=== PATIENT | female | born 1945 | race Caucasian/White ===

== ENCOUNTER → 2019-03-15 | Outpatient (CLI) | payer MEDICARE ==
[~2019-03-15] MED LIST: FAMO40TA6 PO; FLUO40CA PO; HYDR-2854 PO; LISI10TA PO; PRED-398 PO; PREVASTATIN
--- NOTE | 2019-03-15 11:02 | Diagnostic Imaging Report ---
INDICATION: Postmenopausal state. COMPARISON: November 26, 2012. FINDINGS: AP Spine L1-L4: [BMD (g/cm2): 1.084] [T-Score: -1.0] [Z-Score: -0.3] [BMD Previous: 1.114] [BMD % Change: -2.7] LT Hip Neck: [BMD (g/cm2): 0.919] [T-Score: -0.9] [Z-Score: 0.3] LT Hip Total: [BMD (g/cm2):1.073] [T-Score:0.5] [Z-Score: 1.3] [BMD Previous: 1.128] [BMD % Change: -4.9] RT Hip Neck: [BMD (g/cm2):0.868] [T-Score:-1.2] [Z-Score:-0.1] RT Hip Total: [BMD (g/cm2):1.015] [T-score:0.1] [Z-Score:0.9] [BMD Previous:1.075] [BMD % Change:-5.6] *Indicates significant change from prior examination based on 95% confidence level. World Health Organization criteria for BMD interpretation classify patients as Normal (T-score at or above -1.0), Osteopenic (T-score between -1.0 and -2.5) or Osteoporotic (T-score at or below -2.5). LIMITATIONS AND MODIFICATION: None. FRACTURE RISK (FRAX SCORE): The ten year probability of (%): Major Osteoporotic Fracture: [9.1] Hip Fracture: [1.2] IMPRESSION: 1. Osteopenia (Low bone mass). 2. No significant change in bone mineral density since prior examination. 3. See below National Osteoporosis Foundation guidelines on when to potentially initiate pharmacologic therapy. Based on the National Osteoporosis Foundation Guidelines, pharmacologic treatment should be initiated in any of the following, unless clinical conditions suggest otherwise: * Any patient with prior fragility fracture of the hip or vertebrae. A spine fracture indicates 5X risk for subsequent spine fracture and 2X risk for subsequent hip fracture. * Osteoporosis (T-score <-2.5). * Postmenopausal women and men age 50 and older with low bone mass/osteopenia (T-score between -1.0 and -2.5) by DXA and 10-year major osteoporotic fracture greater than 20% or a 10-year probability of hip fracture greater than 3%. These fracture risks are supplied above in the FRAX score, if applicable. * Clinician judgement and/or patient preferences may indicate treatment for people with 10-year fracture probabilities above or below these levels. Dictated by: Dictated on workstation # [id number]
--- NOTE | 2019-03-15 13:21 | Diagnostic Imaging Report ---
INDICATION: Routine screening. COMPARISON: Comparison is made with prior mammogram from 11/26/2012. 2-D and 3-D bilateral screening mammography was performed. The current study was also evaluated with a Computer Aided Detection (CAD) system. 3-D tomosynthesis was also performed and reviewed. FINDINGS: Scattered fibroglandular densities are identified bilaterally. Benign calcifications are noted in both breasts. Tiny circumscribed nodules in the outer aspects of both breasts appears stable. No spiculated mass or malignant-appearing microcalcifications are seen. The axillae are unremarkable. IMPRESSION: No mammographic features suspicious for malignancy are identified. ACR BI-RADS Category 2: Benign findings. Result letter will be mailed to the patient. Note: At least 10% of breast cancer is not imaged by mammography. Dictated by: Dictated on workstation # [id number]
== END ==
LOC: RAD 09:56
PROVIDERS: ATTEND Nurse Practitioner Family
DX: Z12.31 Encounter for screening mammogram for malignant neoplasm of breast (principal); M85.80 Other specified disorders of bone density and structure, unspecified site; Z78.0 Asymptomatic menopausal state
CPT/HCPCS: 77067; 77080

== ENCOUNTER → 2019-04-11 | Outpatient (CLI) | payer MEDICARE | LOC: CARD 13:34 | PROVIDERS: ATTEND Internal Medicine Cardiovascular Disease | DX: I11.9 Hypertensive heart disease without heart failure (principal); R09.89 Other specified symptoms and signs involving the circulatory and respiratory systems; G89.29 Other chronic pain; E11.9 Type 2 diabetes mellitus without complications; R94.31 Abnormal electrocardiogram [ECG] [EKG]; R06.02 Shortness of breath; I08.0 Rheumatic disorders of both mitral and aortic valves | CPT/HCPCS: 93225; 93226; 93306 ==

== ENCOUNTER → 2019-04-26 | Outpatient (CLI) | payer MEDICARE ==
[~2019-04-26] VITALS: Ht 167 cm; Wt 96.0 kg
[~2019-04-26] MED LIST changes: +CATHETER FLUSH 10 ML SYR IV PRN; +REGADENOSON 0.4 MG/5 ML SYR (LEXISCAN) IV ONE
[2019-04-26 09:32] VITALS: BP 151/94
--- NOTE | 2019-04-26 18:30 | STRESS TEST ---
DATE OF SERVICE: 04/26/2019 RESTING AND POST REGADENOSON TECHNETIUM-99M TETROFOSMIN SPECT CT IMAGING ORDERING PHYSICIAN: Dr. Ashraf. PRIMARY PHYSICIAN: NIK Denney CLINICAL DIAGNOSES: Chest discomfort, hypertension. Baseline images were carried out after injection of 9.99 mCi of technetium-99m Tetrofosmin. This was followed by 0.4 mg regadenoson and 27.1 mCi of technetium-99m Tetrofosmin. The electrocardiogram showed sinus rhythm at baseline. It did not change significantly with regadenoson infusion. The patient noted some shortness of breath and nausea following regadenoson infusion, which resolved in a few minutes. Review of images at rest and following stress does not indicate any significant perfusion defects consistent with significant myocardial ischemia or infarction. Gated images show normal global left ventricular systolic function with normal regional wall motion. Left ventricular ejection fraction is calculated to be 62%. Left ventricular end diastolic volume is 84 mL. TID is absent (1.08). CONCLUSIONS: 1. No evidence of any significant myocardial ischemia or infarction on this study. 2. Normal regional wall motion. 3. Normal global left ventricular systolic function with a calculated ejection fraction of 62%. Job ID: [id number] DocumentID: [id number] Dictated Date: 04/26/2019 16:08:02 Anesthesiologists' Assistant Date: 04/26/2019 18:29:53 Dictated By: ZULEYKA ASHRAF MD, MA, FACP, FACC,
== END ==
LOC: CARD 08:18
PROVIDERS: ATTEND Internal Medicine Cardiovascular Disease
DX: I10 Essential (primary) hypertension (principal); G89.29 Other chronic pain; M54.9 Dorsalgia, unspecified; E11.9 Type 2 diabetes mellitus without complications; R94.31 Abnormal electrocardiogram [ECG] [EKG]; R06.02 Shortness of breath
CPT/HCPCS: 78452; 93017

== ENCOUNTER → 2020-03-14 | Outpatient (CLI) | payer MEDICARE ==
[~2020-03-14] MED LIST changes: -CATHETER FLUSH 10 ML SYR IV PRN; -REGADENOSON 0.4 MG/5 ML SYR (LEXISCAN) IV ONE; +RT-ALBUTEROL SULF 2.5 MG/3 ML PRE-MIX VIAL INH ONE
== END ==
LOC: RT 13:00
PROVIDERS: ATTEND Nurse Practitioner Family
DX: R06.02 Shortness of breath (principal)
CPT/HCPCS: 94060; 94726; 94729

== ENCOUNTER → 2020-06-11 | Outpatient (CLI) | payer MEDICARE ==
[~2020-06-11] MED LIST changes: +HOLD METFORMIN - RECEIVED CONTRAST 20 ML VIAL IV SCH; +IOHEXOL 350 MG/ML 100 ML (OMNIPAQUE 350) VIAL IV ONE; +NS 100 ML (IVPB) BAG IV ONE; -RT-ALBUTEROL SULF 2.5 MG/3 ML PRE-MIX VIAL INH ONE
[2020-06-11 11:57] LABS: ABG BASE EXCESS 0.6 MMOL/L (-2.5-2.5); ABG OXYGEN SATURATION 98 % (94-100); ABG PCO2 36 MMHG (35-45); ABG PH 7.44 (7.37-7.43); ABG PO2 86 MMHG (79-93); ABG TCO2 25.5 MMOL/L (21.0-31.0)
[2020-06-11 12:01] LABS: ALLENS TEST YES-POS
[2020-06-11 12:02] LABS: INSPIRED O2 Room Air; PATIENT TEMP 36.5; VENTILATOR NO
[2020-06-11 12:05] LABS: BUN/CREATININE RATIO 23; CREATININE SERUM 0.75 MG/DL (0.60-1.30); GFR ESTIMATED > 60
--- NOTE | 2020-06-11 14:17 | Diagnostic Imaging Report ---
EXAMINATION: CT CHEST W. TECHNIQUE: Multiple contiguous axial images were obtained through the chest with the use of intravenous contrast. All CT scans use one or more of the following dose optimizing techniques: automated exposure control, MA and/or KvP adjustment based on a patient size and exam type, or iterative reconstruction. INDICATION: Dyspnea. COMPARISON: None available. FINDINGS: Lungs and airway: No endoluminal nodule within the trachea. There are two adjacent dense nodules in the medial aspect of the right lower lobe, largest measuring 2.7 x 2.8 cm. The smaller more anterior one measures 1.1 x 0.9 cm. These do not have calcifications within them. Left lower lobe has a 0.8 cm nodule. Pleura: No pleural effusion or pneumothorax. Heart and mediastinum: Thyroid is normal. No supraclavicular or axillary lymphadenopathy. A few subcentimeter mediastinal hilar lymph nodes are present which do not meet size criteria for enlargement. No pericardial effusion. The ascending aorta is aneurysmal measuring 4.8 cm. Upper abdomen: Large exophytic mass arising from the upper pole of the left kidney has central necrosis and is indicative of a primary renal neoplasm. Where visualized, this measures approximately 12 x 12 cm. There is no invasion of left renal vein or IVC. Diffuse hypoattenuation of the liver is indicative of hepatic steatosis. Musculoskeletal: No lytic skeletal lesions are present to suggest skeletal metastasis in the visualized regional skeleton. IMPRESSION: 1. Very large left renal mass is most indicative of a primary renal cell carcinoma. 2. Hyperdense nodules in the right lower lobe are suspicious for hypervascular metastases. A small left lower lobe pulmonary nodules are also present and could be metastatic in nature. 3. 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 The unexpected finding of left renal mass was called to Jazmin in Dr. Medrano's office at 2:10 p.m. on 06/11/2020. Dictated by: Dictated on workstation # [id number]
== END ==
LOC: RAD 12:45
PROVIDERS: ATTEND Internal Medicine Critical Care Medicine
DX: Z13.83 Encounter for screening for respiratory disorder NEC (principal); N28.89 Other specified disorders of kidney and ureter; R91.8 Other nonspecific abnormal finding of lung field; I71.9 Aortic aneurysm of unspecified site, without rupture
CPT/HCPCS: 36415; 36600; 71260; 82565; 82805; 84520

== ENCOUNTER → 2020-06-19 | Outpatient (CLI) | payer MEDICARE ==
[~2020-06-19] MED LIST changes: -HOLD METFORMIN - RECEIVED CONTRAST 20 ML VIAL IV SCH; -IOHEXOL 350 MG/ML 100 ML (OMNIPAQUE 350) VIAL IV ONE; -NS 100 ML (IVPB) BAG IV ONE
--- NOTE | 2020-06-19 14:24 | Diagnostic Imaging Report ---
EXAMINATION: PET/CT. INDICATION: Renal mass. TECHNIQUE: PET/CT imaging was obtained from the base of the skull through the pelvis after the administration of 13.20 mCi of F-[address] imaging was utilized for localization and attenuation correction purposes. The low energy CT utilized for attenuation correction is not considered to be of high enough spatial resolution to allow in and of itself a separate anatomical analysis. Patient height: 5' 6". Patient weight: 223 lbs. Patient's blood glucose: 112. COMPARISON: There are no prior PET/CT examinations available for comparison. The recent CT chest exam of 06/11/2020 did note a bulky left renal mass. This is felt to be secondary to a primary renal cell carcinoma. On this exam, the mass is ill-defined and difficult to evaluate accurately; however, it does show increased hypermetabolic activity with a maximum SUV of 4.9. The previous CT chest exam also identified two hyperdense nodules in the right lung base measuring 2.7 x 2.8 cm and 1.1 x 0.9 cm. There is also a 0.8 cm nodule in the left lower lobe. On this study, the nodules in the right lung base are again identified and appear quite similar to the prior exam. The nodule in the left lung base is difficult to appreciate. There is no hypermetabolic activity involving either lung base to suggest that these masses are neoplastic in nature. There is no acute abnormality identified on the CT images. There is no other hypermetabolic activity to suggest the presence of malignancy. Physiologic activity is seen in the brain, heart, kidneys, bowel, and bladder. The CT images fail to show any sign of an acute abnormality. The aneurysmal dilatation of the ascending aorta seen on the CT chest exam is again evident and no different. IMPRESSION: 1. The large bulky mass along the lateral aspect of the left kidney seen previously is slightly hypermetabolic and should be considered neoplastic until proven otherwise. 2. There is no other hypermetabolic activity to suggest the presence of malignancy, however. In particular, there is no hypermetabolic activity associated with the nodules in the lung bases. 3. There is no acute abnormality noted. 4. The aneurysmal dilatation of the ascending aorta seen previously appears stable. Dictated by: Dictated on workstation # [id number]
== END ==
LOC: RAD 10:44
PROVIDERS: ATTEND Nurse Practitioner Family
DX: N28.89 Other specified disorders of kidney and ureter (principal); R91.8 Other nonspecific abnormal finding of lung field
CPT/HCPCS: 78815; A9552

== ENCOUNTER → 2021-06-27 | Outpatient (CLI) | payer MEDICARE | LOC: CARD 10:30 | PROVIDERS: ATTEND Internal Medicine Cardiovascular Disease | DX: I11.9 Hypertensive heart disease without heart failure (principal); I08.0 Rheumatic disorders of both mitral and aortic valves; I25.10 Atherosclerotic heart disease of native coronary artery without angina pectoris | CPT/HCPCS: 93306 ==

== ENCOUNTER → 2021-10-01 | Outpatient (CLI) | payer MEDICARE ==
--- NOTE | 2021-10-01 12:55 | Diagnostic Imaging Report ---
INDICATION: Postmenopausal screening COMPARISON: 03/15/2019 FINDINGS: AP Spine L1-L4: [BMD (g/cm2): 1.173] [T-Score: -0.2] [Z-Score: 0.4] [BMD Previous: 1.084] [BMD % Change: 8.2] LT Hip Neck: [BMD (g/cm2): 0.858] [T-Score: -1.3] [Z-Score: -0.2] LT Hip Total: [BMD (g/cm2):1.040] [T-Score:0.3] [Z-Score: 1.1] [BMD Previous: 1.073] [BMD % Change: -3.1] RT Hip Neck: [BMD (g/cm2):0.850] [T-Score:-1.4] [Z-Score:-0.2] RT Hip Total: [BMD (g/cm2):0.968] [T-score:-0.3] [Z-Score:0.6] [BMD Previous:1.015] [BMD % Change:-4.6] *Indicates significant change from prior examination based on 95% confidence level. World Health Organization criteria for BMD interpretation classify patients as Normal (T-score at or above -1.0), Osteopenic (T-score between -1.0 and -2.5) or Osteoporotic (T-score at or below -2.5). LIMITATIONS AND MODIFICATION: None. FRACTURE RISK (FRAX SCORE): The ten year probability of (%): Major Osteoporotic Fracture: [NA] Hip Fracture: [NA] IMPRESSION: 1. Osteopenia (Low bone mass). 2. No significant change in bone mineral density since prior examination. 3. See below National Osteoporosis Foundation guidelines on when to potentially initiate pharmacologic therapy. Based on the National Osteoporosis Foundation Guidelines, pharmacologic treatment should be initiated in any of the following, unless clinical conditions suggest otherwise: * Any patient with prior fragility fracture of the hip or vertebrae. A spine fracture indicates 5X risk for subsequent spine fracture and 2X risk for subsequent hip fracture. * Osteoporosis (T-score <-2.5). * Postmenopausal women and men age 50 and older with low bone mass/osteopenia (T-score between -1.0 and -2.5) by DXA and 10-year major osteoporotic fracture greater than 20% or a 10-year probability of hip fracture greater than 3%. These fracture risks are supplied above in the FRAX score, if applicable. * Clinician judgement and/or patient preferences may indicate treatment for people with 10-year fracture probabilities above or below these levels. Dictated by: Dictated on workstation # [id number]
--- NOTE | 2021-10-01 15:31 | Diagnostic Imaging Report ---
INDICATION: Routine screening. COMPARISON: 03/15/2019 and 11/26/2012. TECHNIQUE: 2D and 3D bilateral screening mammography was performed with CAD. FINDINGS: Scattered fibroglandular densities are identified bilaterally. Benign-appearing nodular densities and benign calcifications appear stable. No spiculated mass or malignant-appearing microcalcifications are identified. The axillae are unremarkable. IMPRESSION: No mammographic features suspicious for malignancy are identified. ACR BI-RADS Category 2: Benign findings. Result letter will be mailed to the patient. Note: At least 10% of breast cancer is not imaged by mammography. Dictated by: Dictated on workstation # [id number]
== END ==
LOC: RAD 09:16
PROVIDERS: ATTEND Nurse Practitioner Family
DX: Z12.31 Encounter for screening mammogram for malignant neoplasm of breast (principal); M85.80 Other specified disorders of bone density and structure, unspecified site; Z78.0 Asymptomatic menopausal state
CPT/HCPCS: 77063; 77067; 77080